=== PATIENT | female | born 1960 | race African-American/Black ===

== ENCOUNTER 2017-05-10 11:39 | Emergency (ER) | payer MEDICARE, OTHER ==
[~2017-05-10] VITALS: Ht 162.6 cm; Wt 110.7 kg
[~2017-05-10 11:39] MED LIST: ACYCLOVIR400 MG ORAL; ALBUTEROL SULF8.5 GM INH; AZITHROMYCIN250 MG ORAL; BACTRIM DOUBLE S1 E1 ORAL; BACTRIM-DS1 EA PO; CEPHALEXIN500 MG ORAL; CIPROFLOXACIN500 M2 ORAL; CLARITIN-D 241 EACH PO; CLOTRIMAZOLE15 GM TOPIC; CYCLOBENZAPRINE10 MG ORAL; DIFLUCAN100 MG PO; FLONASE ALLERG9.9 ML NS; HUMALOG100 UNIT/4 SQ; IBUPROFEN200 M2 ORAL; IBUPROFEN600 MG ORAL; IBUPROFEN600 MG PO; LANTUS SOL100 UNIT/1 SUBQ; LANTUS5 UNITS SUBQ; LEVEMIR100 UNIT/1 SUBQ; LYRICA50 MG ORAL; MOISTURIZING L454 ML TP; NORCO 5-325 TA1 EACH ORAL; NOVOLOG; NOVOLOG100 UNIT/3 SUBQ; PHENERGAN/CODE120 ML ORAL; PROMETHAZINE V237 ML ORAL; PROMETHAZINE-D118 ML ORAL; ROBAXIN-750750 MG PO; TENORMIN50 MG ORAL; VALIUM5 MG ORAL; VICODIN 5-5001 EACH PO; ZITHROMAX250 MG ORAL; [UNRECOGNIZED DRUG - REMARK]; lantus
[2017-05-10 12:09] LABS: APPEARANCE,URINE CLEAR; BILIRUBIN, URINE NEGATIVE (NEGATIVE); GLUCOSE, URINE (UA) NEGATIVE (NEGATIVE); KETONES,URINE NEGATIVE (NEGATIVE); LEUKOCYTE ESTERASE ,URINE 2+ (NEGATIVE); NITRITE,URINE NEGATIVE (NEGATIVE); PH,URINE 5 (4.5-8.0); PROTEIN,URINE 1+ (NEGATIVE); UROBILINOGEN,URINE NORMAL MG/DL (0.0-1.0)
[2017-05-10 12:11] LABS: COLOR,URINE YELLOW
[2017-05-10] MEDS ORDERED: CEPHALEXIN500 MG ORAL (12:38)
[2017-05-10 12:45] VITALS: BP 147/84
--- NOTE | 2017-05-10 22:49 | Emergency Room Report ---
History of Present Illness General Chief Complaint: Female Urogenital Problems Source: Patient, Medical Record Present Illness HPI The patient is a 56-year-old female presenting with possible UTI. She states that she has had UTIs in the past and this feels the same. She is experiencing dysuria for the past 2 days as well as increased urinary frequency. She denies hematuria or vaginal discharge. She denies any back pain, fever, or chills Allergies: Coded Allergies: MORPHINE (Unverified Allergy, Intermediate, dizziness and utacaria, ) Patient History Past Medical History: see triage record Pertinent Family History: none Last Menstrual Period: menopause Reviewed Nursing Documentation: PMH: Agreed, PSxH: Agreed Nursing Documentation-PMH Past Medical History: No History, Except For Hx Hypertension: Yes Hx Diabetes: Yes Hx Cancer: Yes - Right Breast Hx Cerebrovascular Accident: Yes Review of Systems All Other Systems: negative except mentioned in HPI Physical Exam Vital Signs Date Time Temp Pulse Resp B/P (MAP) Pulse Ox O2 Delivery O2 Flow Rate FiO2 05/10/17 11:49 97.5 91 18 166/99 98 Room Air Sp02 EP Interpretation: reviewed, normal General Appearance: no apparent distress, alert, GCS 15, non-toxic Head: normocephalic, atraumatic Eyes: bilateral eye normal inspection, bilateral eye PERRL Gastrointestinal: normal bowel sounds, non tender, soft, non-distended, no guarding, no rebound Genitourinary: normal inspection, no CVA tenderness Musculoskeletal: back normal, gait/station normal, normal range of motion, non- tender Neurologic: alert, oriented x3, responsive, motor strength/tone normal, sensory intact, speech normal Psychiatric: judgement/insight normal, memory normal, mood/affect normal, no suicidal/homicidal ideation Skin: normal color, no rash, warm/dry, well hydrated Medical Decision Making PA Attestation Dr. Obando is my supervising physician. Patient management was discussed with my supervising physician Diagnostic Impression: Primary Impression: Acute lower UTI (urinary tract infection) ER Course The patient is a 56-year-old female presenting with possible UTI. Differential diagnosis considered but not limited to: UTI, BV, yeast infection, pyelonephritis, PID, PE: Vitals WNL. NAD. Abdomen: Normal appearance. Non distended. No ecchymosis. Normal BS.Abd non tender. No McBurney point tenderness. No guarding. No CVA tenderness Urinalysis is consistent with urinary tract infection The patient discharged home with a prescription for Keflex and is given ER precautions. Laboratory Tests Test 05/10/17 11:52 Urine Color Yellow Urine Appearance Clear Urine pH 5 (4.5-8.0) Urine Specific [place] 1.025 (1.005-1.035) Urine Protein 1+ (NEGATIVE) H Urine Glucose (UA) Negative (NEGATIVE) Urine Ketones Negative (NEGATIVE) Urine Occult Blood 1+ (NEGATIVE) H Urine Nitrite Negative (NEGATIVE) Urine Bilirubin Negative (NEGATIVE) Urine Urobilinogen Normal MG/DL (0.0-1.0) Urine Leukocyte Esterase 2+ (NEGATIVE) H Urine RBC 2-4 /HPF (0 - 2) H Urine WBC 5-10 /HPF (0 - 2) H Urine Squamous Epithelial Cells Moderate /LPF (NONE/OCC) H Urine Bacteria Few /HPF (NONE) Lab Results Impression There white blood cells with some bacteria Last Vital Signs Date Time Temp Pulse Resp B/P (MAP) Pulse Ox O2 Delivery O2 Flow Rate FiO2 05/10/17 12:45 94 18 147/84 98 Room Air 05/10/17 11:49 97.5 Status: improved Disposition: HOME, SELF-CARE Condition: Improved Scripts Cephalexin* (KEFLEX*) 500 Mg Capsule 500 MG ORAL EVERY 12 HOURS, #14 CAP 0 Refills Prov: TRESA WALTON 05/10/17 Referrals: NON PHYSICIAN (PCP) Patient Instructions: Urinary Tract Infection Additional Instructions: I discussed my findings with the patient. All questions and concerns have been answered. Treatment and medication compliance have been addressed. I advised the patient that they need to follow up with PMD in 3-5 days. Return to ED if symptoms worsen, new symptoms arise, or if needed for any reason. Patient verbalized understanding of discharge instructions. TRESA WALTON May 10, 2017 22:49
== END 2017-05-10 12:47 | disposition home or self-care (01) ==
LOC: EMR 12:47
DX: N39.0 Urinary tract infection, site not specified (principal); E11.9 Type 2 diabetes mellitus without complications; I10 Essential (primary) hypertension; Z85.3 Personal history of malignant neoplasm of breast; Z86.73 Personal history of transient ischemic attack (TIA), and cerebral infarction without residual deficits
CPT/HCPCS: 81003; 99283

== ENCOUNTER 2017-09-30 23:20 | Emergency (ER) | payer MEDICARE, OTHER ==
[~2017-09-30] VITALS: Ht 162.6 cm; Wt 112.5 kg
[2017-10-01 00:10] VITALS: BP 155/90
[2017-10-01] MEDS ORDERED: MYCOLOG OINT1 APPLIC TOPIC (00:23)
[2017-10-01] MEDS ORDERED: HYDROCORTISONE-30 GM TOPIC (00:23)
--- NOTE | 2017-10-01 00:24 | Emergency Room Report ---
History of Present Illness General Chief Complaint: Skin Rash/Abscess Source: Patient Present Illness HPI This a 56-year-old female with a history of hypertension and diabetes. She presents with a rash underneath her right breast area. His been ongoing for for 5 days now. Getting worse. Also starting to spread to the left breast and right groin area. No fever chills but no nausea no vomiting. Weeping in nature. Pain is 7 out of 10. Allergies: Coded Allergies: MORPHINE (Unverified Allergy, Intermediate, dizziness and utacaria, ) Patient History Past Medical History: see triage record, old chart reviewed, DM, HTN Past Surgical History: other Pertinent Family History: none Social History: Denies: smoking Now: No Immunizations: other Reviewed Nursing Documentation: PMH: Agreed; PSxH: Agreed Nursing Documentation-PMH Hx Hypertension: Yes Hx Diabetes: Yes Hx Cancer: Yes - Right Breast Hx Cerebrovascular Accident: No Review of Systems Eye: Denies: eye pain, blurred vision ENT: Denies: ear pain, nose congestion, throat swelling Respiratory: Denies: cough, shortness of breath Cardiovascular: Denies: chest pain, palpitations Gastrointestinal: Denies: abdominal pain, diarrhea, nausea, vomiting Musculoskeletal: Denies: back pain, joint pain Skin: Reports: rash Neurological: Denies: headache, numbness Endocrine: Denies: increased thirst, increased urine Hematologic/Lymphatic: Denies: easy bruising All Other Systems: negative except mentioned in HPI Physical Exam Vital Signs Date Time Temp Pulse Resp B/P (MAP) Pulse Ox O2 Delivery O2 Flow Rate FiO2 09/30/17 23:44 98.0 90 18 155/90 95 Room Air 98.1 vitals normal except for htn Sp02 EP Interpretation: reviewed, normal General Appearance: well appearing, no apparent distress, alert Head: normocephalic, atraumatic Eyes: bilateral eye PERRL, bilateral eye EOMI ENT: hearing grossly normal, normal pharynx Neck: full range of motion, supple, no meningismus Respiratory: chest non-tender, lungs clear, normal breath sounds, other - Right breast: Underneath her breasts she has skin breakdown in skin irritation with satellite lesion. Area measuring about 7-8 cm total. Smaller area underneath the left breast. Cardiovascular #1: regular rate, rhythm, no murmur Gastrointestinal: normal bowel sounds, non tender, no mass, no organomegaly, no bruit, non-distended Musculoskeletal: back normal, gait/station normal, normal range of motion Psychiatric: mood/affect normal Skin: warm/dry Medical Decision Making Diagnostic Impression: Primary Impression: Intertrigo ER Course This patient presents with candidal infection of the breast and groin area. No evidence of abscess or MRSA. We'll discharge home. Last Vital Signs Date Time Temp Pulse Resp B/P (MAP) Pulse Ox O2 Delivery O2 Flow Rate FiO2 10/01/17 00:10 98.1 18 155/90 95 Room Air 98.1 09/30/17 23:44 90 Status: unchanged Disposition: HOME, SELF-CARE Condition: Stable Scripts Nystatin/Triamcinolone (Nystatin-Triamcinolone Ointm) 15 Gm Oint...g. 1 APPLIC TOPIC TID, #60 GM Prov: ANCELMO ALLEN M.D. 10/01/17 Hydrocortisone/Aloe Vera 1%* (HYDROCORTISONE-ALOE 1% CREAM*) Y Cr 1 APPLIC TOPIC Q6H PRN for Itching, #60 GM Prov: ANCELMO ALLEN M.D. 10/01/17 Additional Instructions: Follow-up your doctor in 7 days for recheck. Return if symptom worsen. ANCELMO ALLEN M.D. October 01, 2017 00:23
== END 2017-10-01 00:35 | disposition home or self-care (01) ==
LOC: EMR 23:49
DX: R51 Headache (principal); L30.4 Erythema intertrigo; Z88.5 Allergy status to narcotic agent; I10 Essential (primary) hypertension; E11.9 Type 2 diabetes mellitus without complications; Z85.3 Personal history of malignant neoplasm of breast
CPT/HCPCS: 99284

== ENCOUNTER 2018-04-04 20:20 | Emergency (ER) | payer MEDICARE, OTHER ==
[~2018-04-04] VITALS: Ht 162.6 cm; Wt 109.3 kg
[~2018-04-04 20:20] MED LIST changes: +HYDROCORTISONE-30 GM TOPIC; +MYCOLOG OINT1 APPLIC TOPIC
[2018-04-04 21:10] LABS: APPEARANCE,URINE SLIGHTLY CLOUDY; BILIRUBIN, URINE 2+ (NEGATIVE); GLUCOSE, URINE (UA) 4+ (NEGATIVE); LEUKOCYTE ESTERASE ,URINE 3+ (NEGATIVE); NITRITE,URINE POSITIVE (NEGATIVE); PH,URINE 6 (4.5-8.0); PROTEIN,URINE 1+ (NEGATIVE); UROBILINOGEN,URINE 8 MG/DL (0.0-1.0)
[2018-04-04 21:22] LABS: COLOR,URINE ORANGE; KETONES,URINE NEGATIVE (NEGATIVE)
[2018-04-04] MEDS ORDERED: CEPHALEXIN500 MG ORAL (21:46)
[2018-04-04 23:33] VITALS: BP 162/83
--- NOTE | 2018-04-05 00:21 | Emergency Room Report ---
History of Present Illness General Chief Complaint: Female Urogenital Problems Source: Patient Present Illness HPI 57-year-old female presents ED for evaluation. Complaining of dysuria 1 day. Dull, 7 out of 10, nonradiating. Denies flank pain. Denies fevers or chills. Denies nausea or vomiting. No other aggravating relieving factors. Denies any other associated symptoms Allergies: Coded Allergies: MORPHINE (Unverified Allergy, Intermediate, dizziness and utacaria, ) Patient History Past Medical History: HTN, other - breast cancer Past Surgical History: none Pertinent Family History: none Social History: Denies: smoking, alcohol use, drug use Last Menstrual Period: 3 decades ago Now: No Immunizations: UTD Reviewed Nursing Documentation: PMH: Agreed; PSxH: Agreed Nursing Documentation-PMH Hx Hypertension: Yes Hx Diabetes: Yes Hx Cancer: Yes - Right Breast Hx Cerebrovascular Accident: No Review of Systems All Other Systems: negative except mentioned in HPI Physical Exam Vital Signs Date Time Temp Pulse Resp B/P (MAP) Pulse Ox O2 Delivery O2 Flow Rate FiO2 04/04/18 20:36 98.1 95 16 162/83 97 Room Air Sp02 EP Interpretation: reviewed, normal General Appearance: no apparent distress, alert, GCS 15, non-toxic, obese Head: normocephalic Eyes: bilateral eye normal inspection, bilateral eye PERRL ENT: normal ENT inspection Neck: normal inspection Respiratory: normal inspection Cardiovascular #1: normal inspection Gastrointestinal: normal bowel sounds, non tender, soft, non-distended, no guarding, no rebound Rectal: deferred Genitourinary: no CVA tenderness Musculoskeletal: normal inspection Neurologic: alert, oriented x3, responsive, motor strength/tone normal, sensory intact, speech normal Psychiatric: normal inspection Skin: normal inspection Lymphatic: normal inspection Medical Decision Making Diagnostic Impression: Primary Impression: Acute lower UTI (urinary tract infection) ER Course Hospital Course 57-year-old female presents to ED complaining of dysuria Differential diagnoses include: UTI, cystitis, pyelonephritis Clinical course Patient placed on stretcher. After initial history and physical I ordered UA UA + bacteria. we will treat clinically for UTI. Patient is afebrile, nontoxic- appearing. Patient is a good candidate for outpatient antibiotics. Safe for discharge with close outpatient follow-up Diagnosis - UTI Stable and discharged home with prescriptions for Rx keflex. Instructed to followup with PMD. Return to ED if symptoms recur or worsen Labs Test 04/04/18 21:01 Urine Color [place] Urine Appearance Slightly cloudy Urine pH 6 (4.5-8.0) Urine Specific [place] 1.020 (1.005-1.035) Urine Protein 1+ (NEGATIVE) Urine Glucose (UA) 4+ (NEGATIVE) Urine Ketones Negative (NEGATIVE) Urine Blood 1+ (NEGATIVE) Urine Nitrite Positive (NEGATIVE) Urine Bilirubin 2+ (NEGATIVE) Urine Ictotest Negative (NEGATIVE) Urine Urobilinogen 8 MG/DL (0.0-1.0) Urine Leukocyte Esterase 3+ (NEGATIVE) Urine RBC 0-2 /HPF (0 - 2) Urine WBC 2-4 /HPF (0 - 2) Urine Squamous Epithelial Cells Moderate /LPF (NONE/OCC) Urine Bacteria Few /HPF (NONE) Urine Yeast Moderate /HPF (NONE) Last Vital Signs Date Time Temp Pulse Resp B/P (MAP) Pulse Ox O2 Delivery O2 Flow Rate FiO2 04/04/18 23:33 98.0 95 16 162/83 97 Room Air Status: improved Disposition: HOME, SELF-CARE Condition: Stable Scripts Cephalexin* (KEFLEX*) 500 Mg Capsule 500 MG ORAL EVERY 6 HOURS for 7 Days, CAP Prov: Naveen Jackson MD 04/04/18 Referrals: NON PHYSICIAN (PCP) Patient Instructions: Urinary Tract Infection Naveen Jackson MD Apr 05, 2018 00:21
== END 2018-04-04 21:48 | disposition home or self-care (01) ==
LOC: EMR 21:11
DX: N39.0 Urinary tract infection, site not specified (principal); I10 Essential (primary) hypertension; E11.9 Type 2 diabetes mellitus without complications; Z88.5 Allergy status to narcotic agent; Z85.3 Personal history of malignant neoplasm of breast
CPT/HCPCS: 81003; 87086; 99283

== ENCOUNTER 2018-06-11 14:17 | Emergency (ER) | payer MEDICARE, OTHER ==
[~2018-06-11] VITALS: Ht 162.6 cm; Wt 112.5 kg
--- NOTE | 2018-06-11 14:34 | NUR ---
ED Nurse Note: Pt came in due to right earache and sore throat x 1 week. No ear discharge. Pt also c/o right foot pain.
--- NOTE | 2018-06-11 14:34 | Emergency Room Report ---
History of Present Illness General Chief Complaint: General Complaint Source: Patient Present Illness HPI 57 YO Female presents to the ED c/o Right ear pain 9/10 in severity with decreased hearing and external ear tenderness x 1 week. symptoms have been progressive. Pt. also reports 8/10 in severity posterior right ankle pain and tenderness in the Achilles area x 5 days. pt. states pain increased with prolonged walking. pt. attributes her symptoms to being flat footed. pt. denies trauma or fall. Pt. also reports sore throat x 1 year persistent/chronic following throat surgery. pt. denies fevers, chills, swollen tender lymph nodes. nasal congestion or cough. Pt. denies ear discharge. Denies numbness tingling or loss of sensation or gross motor movements of the extremities, incontinence of bowel or bladder. Denies CP, Palpitations, LOC, AMS, dizziness, Changes in Vision, weakness or a sudden severe headache. Allergies: Coded Allergies: MORPHINE (Unverified Allergy, Intermediate, dizziness and utacaria, 06/11/18 ) Patient History Past Medical History: see triage record Past Surgical History: none Pertinent Family History: none Now: No Reviewed Nursing Documentation: PMH: Agreed; PSxH: Agreed Nursing Documentation-PMH Past Medical History: No History, Except For Hx Hypertension: Yes Hx Diabetes: Yes - DM2 Hx Cancer: Yes - Right Breast CA Hx Cerebrovascular Accident: No Review of Systems All Other Systems: negative except mentioned in HPI Physical Exam Vital Signs Date Time Temp Pulse Resp B/P (MAP) Pulse Ox O2 Delivery O2 Flow Rate FiO2 06/11/18 14:24 98.2 97 16 169/94 95 Room Air Sp02 EP Interpretation: reviewed, normal General Appearance: no apparent distress, alert, GCS 15, non-toxic Head: normocephalic, atraumatic Eyes: bilateral eye normal inspection, bilateral eye PERRL ENT: hearing grossly normal, normal voice, uvula midline, moist mucus membranes , nasal congestion, other - right canal is swollen and tender, external tenderness to palpation as well. Neck: full range of motion, no bony tend Respiratory: chest non-tender, lungs clear, normal breath sounds, no wheezing, speaking full sentences Cardiovascular #1: regular rate, rhythm, no edema Musculoskeletal: back normal, gait/station normal - compensatory favoring the right leg, normal range of motion, tender - TTP to the posterior right ankle, FROM no obvious deformity. localized to achilles Neurologic: alert, oriented x3, responsive, motor strength/tone normal, sensory intact, speech normal, grossly normal Psychiatric: judgement/insight normal Skin: normal color, no rash, warm/dry, well hydrated Lymphatic: no adenopathy Medical Decision Making PA Attestation Dr. Britton is my supervising Physician whom patient management has been discussed with. Diagnostic Impression: Primary Impression: Otitis externa Qualified Codes: H60.501 - Unspecified acute noninfective otitis externa, right ear Additional Impression: Achilles tendinitis, right leg ER Course 57 YO Female presents to the ED c/o Right ear pain 9/10 in severity with decreased hearing and external ear tenderness x 1 week. symptoms have been progressive. Pt. also reports 8/10 in severity posterior right ankle pain and tenderness in the Achilles area x 5 days. pt. states pain increased with prolonged walking. pt. attributes her symptoms to being flat footed. pt. denies trauma or fall. Pt. also reports sore throat x 1 year persistent/chronic following throat surgery. pt. denies fevers, chills, swollen tender lymph nodes. nasal congestion or cough. Pt. denies ear discharge. Denies numbness tingling or loss of sensation or gross motor movements of the extremities, incontinence of bowel or bladder. Denies CP, Palpitations, LOC, AMS, dizziness, Changes in Vision, weakness or a sudden severe headache. Ddx considered but are not limited to OM, OE, mastoiditis, TM perforation, FB, shingles , acuities tendinitis, ankle sprain, or fracture just to name a few. Vital signs: are WNL, pt. is afebrile H&PE are most consistent with otitis Externa, and tendonitis ORDERS: none required at this time, the diagnosis is clinical ED INTERVENTIONS: -Pt provided with a cane DISCHARGE: At this time pt. is stable for d/c to home. With PO ABX. Will provide printed patient care instructions, and any necessary prescriptions. Care plan and follow up instructions have been discussed with the patient prior to discharge. Last Vital Signs Date Time Temp Pulse Resp B/P (MAP) Pulse Ox O2 Delivery O2 Flow Rate FiO2 06/11/18 14:24 98.2 97 16 169/94 95 Room Air Disposition: HOME, SELF-CARE Condition: Stable Scripts Naproxen* (NAPROXEN*) 500 Mg Tablet 500 MG ORAL TWICE A DAY for 3 Days, #6 TAB Prov: Nicol Posada 06/11/18 Ciprofloxacin Hcl/Dexameth (CIPRODEX OTIC SUSPENSION) 7.5 Ml Drops.susp 4 DROP RIGHT EAR TWICE A DAY for 7 Days, #7.5 ML Prov: Nicol Posada 06/11/18 Patient Instructions: Achilles Tendinitis, Otitis Externa, [id number] Additional Instructions: Take medications as directed. Follow up with a Primary Care Provider in 3-5 days, even if your symptoms have resolved. --Please review list of primary care clinics, if you do not already have a primary care provider Return sooner to ED if new symptoms occur, or current symptoms become worse. Do not drink alcohol, drive, or operate heavy machinery while taking [ ] as this may cause drowsiness. - Please note that this Emergency Department Report was dictated using [employer] draftsperson technology software, occasionally this can lead to erroneous entry secondary to interpretation by the dictation equipment. Nicol Posada Jun 11, 2018 14:34
[2018-06-11 14:46] VITALS: BP 158/90
[2018-06-11] MEDS ORDERED: CIPRODEX OTIC7.5 M1 RIGHT EAR (14:57)
[2018-06-11] MEDS ORDERED: NAPROXEN500 M2 ORAL (14:57)
--- NOTE | 2018-06-11 15:20 | NUR ---
ED Nurse Note: pt cleared to d/c per ER provider order, pt discharge instruction provided w/prescription given. pt advised to follow up with pcp or return to ed if s/s worsen or new s/s develop, pt education done via discussion and hand out, patient verbalized understanding. ID wristband removed, pt vss, ambulatory w/ steady gait, respiration even and unlabored, airway intact, pt left with all belongings.
[2018-06-11 15:30] VITALS: BP 158/90
== END 2018-06-11 15:20 | disposition home or self-care (01) ==
LOC: EMR 14:50
DX: H60.91 Unspecified otitis externa, right ear (principal); I10 Essential (primary) hypertension; E11.9 Type 2 diabetes mellitus without complications; Z85.3 Personal history of malignant neoplasm of breast; Z88.5 Allergy status to narcotic agent; M76.61 Achilles tendinitis, right leg
CPT/HCPCS: 99282

== ENCOUNTER 2018-10-26 11:05 | Emergency (ER) | payer MEDICARE, OTHER ==
[~2018-10-26] VITALS: Ht 162.6 cm; Wt 108.9 kg
[~2018-10-26 11:05] MED LIST changes: +CIPRODEX OTIC7.5 M1 RIGHT EAR; +NAPROXEN500 M2 ORAL
--- NOTE | 2018-10-26 11:15 | NUR ---
ED Nurse Note: Patient walked into ED c/o right earache and hearing difficulty for 2 weeks. patient reports that she has pain on the right foot/heel for 1 week. patient denies any injury. patient is alert awake x4 ambulatory, breathing unlabored and even. skin is warm to touch.
[2018-10-26 11:25] VITALS: BP 128/72
[2018-10-26] MEDS ORDERED: DEBROX15 M1 RIGHT EAR (11:41)
[2018-10-26 11:44] VITALS: BP 128/72
--- NOTE | 2018-10-26 11:44 | NUR ---
ER DISCHARGE NOTE: Patient is cleared to be discharged per ERMD, pt is aox4, on room air, with stable vital signs. pt was given dc and prescription instructions, pt was able to verbalize understanding, pt id band removed. pt is able to ambulate with steady gait. pt took all belongings.
--- NOTE | 2018-10-27 08:29 | Emergency Room Report ---
History of Present Illness General Chief Complaint: Earache Source: Patient Present Illness HPI 57-year-old female presents ED for evaluation. Complaining of right ear fullness for the last 2 weeks. States it feels clogged and she cannot hear anything. Denies pain. Denies fevers or chills. Denies cough. Patient also complaining of right heel pain. She has had this pain on and off for several years. Got exacerbated in the last week. Denies any recent fall or injury. Pain is dull, 7 out of 10, nonradiating. Is able to bear weight. No other aggravating or relieving factors. Denies any other associated symptoms Allergies: Coded Allergies: MORPHINE (Unverified Allergy, Intermediate, dizziness and utacaria, 06/11/18 ) Patient History Past Medical History: DM, HTN, other - R breast ca Past Surgical History: none Pertinent Family History: none Social History: Denies: smoking, alcohol use, drug use Now: No Immunizations: UTD Reviewed Nursing Documentation: PMH: Agreed; PSxH: Agreed Nursing Documentation-PMH Past Medical History: No History, Except For Hx Hypertension: Yes Hx Diabetes: Yes - DM2 Hx Cancer: Yes - Right Breast CA Hx Cerebrovascular Accident: No Review of Systems All Other Systems: negative except mentioned in HPI Physical Exam Vital Signs Date Time Temp Pulse Resp B/P (MAP) Pulse Ox O2 Delivery O2 Flow Rate FiO2 10/26/18 11:10 98.2 84 20 143/76 (98) 94 Room Air Sp02 EP Interpretation: reviewed, normal General Appearance: no apparent distress, alert, GCS 15, non-toxic Head: normocephalic, atraumatic Eyes: bilateral eye normal inspection, bilateral eye PERRL ENT: normal pharynx, no angioedema, normal voice, tonsillar exudate - R ear canal cerumen impaction, other Neck: full range of motion, supple/symm/no masses Respiratory: chest non-tender, lungs clear, normal breath sounds, speaking full sentences Cardiovascular #1: regular rate, rhythm, no edema Cardiovascular #2: 2+ carotid (R), 2+ carotid (L), 2+ radial (R), 2+ radial (L) , 2+ dorsalis pedis (R), 2+ dorsalis pedis (L) Gastrointestinal: normal bowel sounds, non tender, soft, non-distended, no guarding, no rebound Rectal: deferred Genitourinary: normal inspection, no CVA tenderness Musculoskeletal: back normal, gait/station normal, normal range of motion, tender - R heel Neurologic: alert, oriented x3, responsive, motor strength/tone normal, sensory intact, speech normal Psychiatric: judgement/insight normal, memory normal, mood/affect normal, no suicidal/homicidal ideation Reflexes: 3+ bicep (R), 3+ bicep (L), 3+ tricep (R), 3+ tricep (L), 3+ knee (R) , 3+ knee (L) Skin: normal color, no rash, warm/dry, well hydrated Lymphatic: no adenopathy Medical Decision Making Diagnostic Impression: Primary Impression: Heel pain, chronic Qualified Codes: M79.671 - Pain in right foot; G89.29 - Other chronic pain Additional Impression: Cerumen impaction Qualified Codes: H61.21 - Impacted cerumen, right ear ER Course Hospital Course 57 yo F presents with fullness, difficulty hearing R ear Differential diagnoses include: TM perforation, otitis externa, otitis media, vestibulitis/labryntitis Clinical course Patient placed on stretcher. After initial history, physical exam reveals a middle aged female in no acute distress. Right ear canal with cerumen impaction. Unable to visualize TM. Left TM unremarkable. Remainder of head and neck exam unremarkable. She also has tenderness to the right heel. No bruising or deformity. No crepitus. No swelling or erythema or induration. Pain is chronic. Has not orthopedics for this. I see no reason for imaging at this time. I will provide orthopedic referral Diagnosis - cerumen impaction, chronic heel pain Stable and discharged to home with Rx Debrox. Followup with PMD/ortho. Return to ED if symptoms recur or worsen Last Vital Signs Date Time Temp Pulse Resp B/P (MAP) Pulse Ox O2 Delivery O2 Flow Rate FiO2 10/26/18 11:44 98.2 81 17 128/72 99 Room Air Status: improved Disposition: HOME, SELF-CARE Condition: Stable Scripts Carbamide Peroxide (DEBROX) 15 Ml Drops 10 DROP RIGHT EAR TWICE A DAY for 4 Days, ML 0 Refills Prov: Naveen Jackson MD 10/26/18 Referrals: NOT CHOSEN IPA/,REFERRING (PCP) [facility] Open 24 hour /7 days a week by Appointment Only [address] [facility] [id number] Patient Instructions: LeonardumeNaveen Us MD Oct 27, 2018 08:29
== END 2018-10-26 11:44 | disposition home or self-care (01) ==
LOC: EMR 11:33
DX: H61.21 Impacted cerumen, right ear (principal); M79.671 Pain in right foot; G89.29 Other chronic pain; Z88.6 Allergy status to analgesic agent; E11.9 Type 2 diabetes mellitus without complications; I10 Essential (primary) hypertension; Z85.3 Personal history of malignant neoplasm of breast
CPT/HCPCS: 99282

== ENCOUNTER 2019-02-11 20:43 | Emergency (ER) | payer MEDICARE, OTHER ==
[~2019-02-11] VITALS: Ht 162.6 cm; Wt 104.3 kg
[~2019-02-11 20:43] MED LIST changes: +DEBROX15 M1 RIGHT EAR
[2019-02-11 21:20] VITALS: BP 162/85
--- NOTE | 2019-02-11 21:20 | NUR ---
ED Nurse Note: Patient walked into ED c/o right ear pain that has been an ongoing issue for the past 3 days, reports of 2/10 earache, patient does not report to having any discharge in the ear, just reports discomfort. patient is alert and oriented x4, ambulatory with a steady gait, VSS
[2019-02-11] MEDS ORDERED: DEBROX15 M1 RIGHT EAR (21:58)
--- NOTE | 2019-02-11 21:58 | Emergency Room Report ---
History of Present Illness General Chief Complaint: Earache Source: Patient Present Illness HPI Is a 58-year-old female with no significant past medical history. She presents with chief complaint of right ear fullness and cannot hear out of it. Is been ongoing for over a week. Denies any fever chills but denies any nausea vomiting denies any trauma. She says she used tissue in her ear but does not use Q-tips. No drainage. Nothing made it better. Nothing made it worse. Allergies: Coded Allergies: MORPHINE (Unverified Allergy, Intermediate, dizziness and utacaria, 06/11/18 ) Patient History Past Medical History: see triage record, old chart reviewed Past Surgical History: none Pertinent Family History: none Social History: Denies: smoking Last Menstrual Period: na Now: No Immunizations: other Reviewed Nursing Documentation: PMH: Agreed; PSxH: Agreed Nursing Documentation-PMH Hx Hypertension: Yes Hx Diabetes: Yes - DM2 Hx Cerebrovascular Accident: No Review of Systems Eye: Denies: eye pain, blurred vision ENT: Denies: ear pain, nose congestion, throat swelling Respiratory: Denies: cough, shortness of breath Cardiovascular: Denies: chest pain, palpitations Gastrointestinal: Denies: abdominal pain, diarrhea, nausea, vomiting Musculoskeletal: Denies: back pain, joint pain Skin: Denies: rash Neurological: Denies: headache, numbness Endocrine: Denies: increased thirst, increased urine Hematologic/Lymphatic: Denies: easy bruising All Other Systems: negative except mentioned in HPI Physical Exam Vital Signs Date Time Temp Pulse Resp B/P (MAP) Pulse Ox O2 Delivery O2 Flow Rate FiO2 02/11/19 21:16 97.5 89 16 172/92 (118) 95 Room Air Vitals with high blood pressure Sp02 EP Interpretation: reviewed, normal General Appearance: well appearing, no apparent distress, alert Head: normocephalic, atraumatic Eyes: bilateral eye PERRL, bilateral eye EOMI ENT: hearing grossly normal, normal pharynx, other - right ear canal impacted with cerumen. Left ear is normal Neck: full range of motion, supple, no meningismus Respiratory: chest non-tender, lungs clear, normal breath sounds Cardiovascular #1: regular rate, rhythm, no murmur Gastrointestinal: normal bowel sounds, non tender, no mass, no organomegaly, no bruit, non-distended Musculoskeletal: back normal, gait/station normal, normal range of motion Psychiatric: mood/affect normal Procedures Additional Procedure Procedure Narrative Procedure: Cerumen disimpaction Indication: Cerumen impaction Description: I irrigate the ear using an 18-gauge angiocatheter. Also removed some wax with ear curette. Was able to remove some but there is still impacted wax inside. Patient says she started hearing better now. Will discharge home. Medical Decision Making Diagnostic Impression: Primary Impression: Cerumen impaction Qualified Codes: H61.21 - Impacted cerumen, right ear ER Course This patient presents with cerumen impaction. I see no obvious foreign body. No evidence of any infection. Unable to see the TM. Will discharge home with Debrox. If not better, will need to see ENT. Last Vital Signs Date Time Temp Pulse Resp B/P (MAP) Pulse Ox O2 Delivery O2 Flow Rate FiO2 02/11/19 21:16 97.5 89 16 172/92 (118) 95 Room Air Status: improved Disposition: HOME, SELF-CARE Scripts Carbamide Peroxide (DEBROX) 15 Ml Drops 5 DROP RIGHT EAR TWICE A DAY for 4 Days, ML 0 Refills Prov: Armen Durant MD 02/11/19 Additional Instructions: Up with your doctor in 7 days. If not better, you may need a referral to see an ENT doctor. Return if worse. Armen Durant MD Feb 11, 2019 21:58
[2019-02-11 22:00] VITALS: BP 162/88
--- NOTE | 2019-02-11 22:00 | NUR ---
ER DISCHARGE NOTE: Patient is cleared to be discharged per ERMD, pt is aox4, on room air, with stable vital signs. pt was given dc and prescription instructions, pt was able to verbalize understanding, pt id band removed without complications. pt is able to ambulate with steady gait. pt took all belongings.
== END 2019-02-11 22:00 | disposition home or self-care (01) ==
LOC: EMR 21:36
DX: H61.21 Impacted cerumen, right ear (principal); I10 Essential (primary) hypertension; E11.9 Type 2 diabetes mellitus without complications; Z88.6 Allergy status to analgesic agent
CPT/HCPCS: 99283